=== PATIENT | male | born 2000 | race Caucasian/White ===

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

== ENCOUNTER 2021-03-04 23:05 | Emergency (ER) | payer SELFPAY ==
[~2021-03-04] VITALS: Ht 167.6 cm; Wt 87.0 kg
[2021-03-04 23:48] VITALS: BP 142/89
== END 2021-03-05 03:18 | disposition left against medical advice (07) ==
LOC: ER 23:05
DX: R00.0 Tachycardia, unspecified (principal); R03.0 Elevated blood-pressure reading, without diagnosis of hypertension; Z20.2 Contact with and (suspected) exposure to infections with a predominantly sexual mode of transmission; F14.90 Cocaine use, unspecified, uncomplicated; F12.90 Cannabis use, unspecified, uncomplicated
CPT/HCPCS: 99283